=== PATIENT | female | born 1985 | race Caucasian/White ===

== ENCOUNTER 2016-11-20 13:45 | Emergency (ER) | payer OTHER ==
[~2016-11-20] VITALS: Ht 177.8 cm; Wt 149.2 kg
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
--- NOTE | 2016-11-20 15:23 | RAD ---
CT of the head without contrast, 11/20/2016: History: Head trauma The ventricles are within normal limits in size. There is no shift of the midline structures. There is no evidence of acute intracranial hemorrhage or mass effect. IMPRESSION: No acute intracranial abnormality is detected. CT of the cervical spine without contrast, 11/20/2016: Noncontrast scans were obtained with multiplanar reconstructions produced. No fracture or dislocation is identified. The disc margins are not adequately delineated in the lower cervical spine due to streak artifacts. No spinal canal narrowing is delineated. The paraspinous soft tissues are unremarkable. IMPRESSION: No acute cervical spine abnormality is detected. PQRS Compliance Statement: One or more of the following individualized dose reduction techniques were utilized for this examination: 1. Automated exposure control 2. Adjustment of the mA and/or kV according to patient size 3. Use of iterative reconstruction technique
[2016-11-20 15:32] VITALS: BP 123/58
== END 2016-11-20 15:53 | disposition home or self-care (01) ==
LOC: ER 13:45
DX: S06.0X9A Concussion with loss of consciousness of unspecified duration, initial encounter (principal); M54.2 Cervicalgia; E11.9 Type 2 diabetes mellitus without complications; W20.8XXA Other cause of strike by thrown, projected or falling object, initial encounter; Y93.89 Activity, other specified; Y92.89 Other specified places as the place of occurrence of the external cause; Y99.8 Other external cause status
CPT/HCPCS: 70450; 72125; 81025; 99284-25

== ENCOUNTER 2017-09-26 18:13 | Emergency (ER) | payer OTHER ==
[2017-09-26 18:46] LABS: URINE HCG POC HCG NEGATIVE (Negative)
[2017-09-26 18:47] LABS: ADD MAN DIFF? NO
[2017-09-26] MEDS: DEXAMETHASONE SOD PHOS 4 MG/ML VIAL IV (18:58)
[2017-09-26 18:59] LABS: BASO % 0 % (0-3); EOS # 0.1 x10^3/uL (0.0-0.7); EOS % 1 % (0-3); HEMATOCRIT 34.6 % (36.0-47.0); HEMOGLOBIN 11.9 g/dL (12.0-15.5); LYMPH # 2.8 x10^3/uL (1.0-4.8); LYMPH % 47 % (24-48); MEAN CORPUSCULAR HEMOGLOBIN 29 pg (25-35); MEAN CORPUSCULAR HGB CONC 34 g/dL (31-37); MEAN CORPUSCULAR VOLUME 85 fL (79-100); MONO # 0.4 x10^3/uL (0.0-1.1); MONO % 7 % (0-9); NEUT # 2.6 x10^3uL (1.8-7.7); NEUT % 45 % (31-73); PLATELET COUNT 176 x10^3/uL (140-400); RED BLOOD COUNT 4.07 x10^6/uL (3.50-5.40); RED CELL DISTRIBUTION WIDTH 15.5 % (11.5-14.5); WHITE BLOOD COUNT 5.9 x10^3/uL (4.0-11.0)
[2017-09-26] MEDS: METOCLOPRAMIDE HCL 10 MG/2 ML VIAL. IV (18:59)
[2017-09-26] MEDS: diphenhydrAMINE 50 MG/ML VIAL IVP (18:59)
[2017-09-26] MEDS: KETOROLAC 30 MG/ML INJ. IV (18:59)
[2017-09-26 19:08] LABS: ANION GAP 10 (6-14); BLOOD UREA NITROGEN 7 mg/dL (7-20); BUN/CREATININE RATIO 12 (6-20); CALCIUM 8.6 mg/dL (8.5-10.1); CARBON DIOXIDE 26 mmol/L (21-32); CHLORIDE 103 mmol/L (98-107); CREATININE 0.6 mg/dL (0.6-1.0); GFR 116.6; GLUCOSE 183 mg/dL (70-99); POTASSIUM 3.6 mmol/L (3.5-5.1); SODIUM 139 mmol/L (136-145)
[2017-09-26 19:14] LABS: ALBUMIN 3.6 g/dL (3.4-5.0); ALK PHOS 52 U/L (46-116); ALT (SGPT) 27 U/L (14-59); AST (SGOT) 24 U/L (15-37); TOTAL BILIRUBIN 0.7 mg/dL (0.2-1.0); TOTAL PROTEIN 7.1 g/dL (6.4-8.2)
[2017-09-26] MEDS: IV NORMAL SALINE 1000ML BAG 1,000 ML IV (19:57)
[2017-09-26 20:30] LABS: URINE HCG POC HCG NEGATIVE (Negative)
[2017-09-26 20:54] LABS: BILIRUBIN,URINE NEGATIVE (NEG); CLARITY,URINE CLEAR; COLOR,URINE YELLOW; GLUCOSE,URINE NEGATIVE (NEG); NITRITE,URINE NEGATIVE (NEG); PROTEIN,URINE NEGATIVE (NEG-TRACE)
[2017-09-26 21:00] LABS: BACTERIA,URINE 0 /HPF (0-FEW); RBC,URINE 0 /HPF (0-2); SQUAMOUS EPITHELIAL CELL,UR MOD /LPF
== END 2017-09-26 20:39 | disposition home or self-care (01) ==
LOC: ER 18:13
DX: R51 Headache (principal); E11.9 Type 2 diabetes mellitus without complications; Z21 Asymptomatic human immunodeficiency virus [HIV] infection status
CPT/HCPCS: 36415; 80053; 81001; 81025; 85025; 96374; 96375; 99284-25; J1100; J1200; J1885; J2765; J7030

== ENCOUNTER 2019-11-20 17:14 | Emergency (ER) | payer OTHER ==
[~2019-11-20] VITALS: Ht 180.3 cm; Wt 139.6 kg
[~2019-11-20 17:14] MED LIST: TRAM50TA PO
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
[2019-11-20] MEDS ORDERED: CYCL10TA2 PO (19:34)
[2019-11-20 19:41] VITALS: BP 125/85
== END 2019-11-20 19:43 | disposition home or self-care (01) ==
LOC: ER 17:14
DX: S13.4XXA Sprain of ligaments of cervical spine, initial encounter (principal); M54.6 Pain in thoracic spine; E11.9 Type 2 diabetes mellitus without complications; F17.200 Nicotine dependence, unspecified, uncomplicated; Z21 Asymptomatic human immunodeficiency virus [HIV] infection status; V89.2XXA Person injured in unspecified motor-vehicle accident, traffic, initial encounter; Y93.89 Activity, other specified; Y92.413 State road as the place of occurrence of the external cause; Y99.8 Other external cause status
CPT/HCPCS: 72125; 72128; 81025; 99285

== ENCOUNTER 2019-11-22 00:18 | Emergency (ER) | payer OTHER ==
[~2019-11-22] VITALS: Ht 180.3 cm; Wt 181.0 kg
[~2019-11-22 00:18] MED LIST changes: +CYCL10TA2 PO
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
[2019-11-22 02:11] VITALS: BP 141/73
== END 2019-11-22 02:11 | disposition home or self-care (01) ==
LOC: ER 00:18
DX: G89.11 Acute pain due to trauma (principal); R07.89 Other chest pain; E11.9 Type 2 diabetes mellitus without complications; F17.200 Nicotine dependence, unspecified, uncomplicated; V98.8XXA Other specified transport accidents, initial encounter; Y93.89 Activity, other specified; Y92.488 Other paved roadways as the place of occurrence of the external cause; Y99.8 Other external cause status
CPT/HCPCS: 71101; 81025; 99283